=== PATIENT | male | born 1985 | race Two or more races ===

== ENCOUNTER → 2018-09-24 | Outpatient (CLI) | payer OTHER ==
--- NOTE | 2018-09-24 15:44 | RADIOLOGY IMAGING REPORT ---
FACILITY: [facility] PATIENT NAME: Roseann Hair : 1985 MR: [id number] V: [id number] EXAM DATE: ORDERING PHYSICIAN: BRAD PARK TECHNOLOGIST: Location: [facility] Patient: Roseann Hair : 1985 Visit/Account:[id number] Date of Sevice: 09/24/2018 TESTICULAR HISTORY: possible right varicocele, right-sided scrotal mass COMPARISON: None. FINDINGS: Testes: The right testicle measures 3.8 x 2.2 x 2.7 cm. The left testicle measures 4 x 1.7 x 2.6 cm. Symmetric and unremarkable blood flow documented by color and Duplex Doppler ultrasound. Epididymides: The head the epididymis on the right measures 9 mm. The head epididymis on the left me asures 9 mm. Blood flow is unremarkable in each epididymis by color Doppler ultrasound. Hydrocele: Small bilaterally Varicocele: The vessels of the pampiniform plexus on the right appear more prominent than on the left , particularly during the Valsalva maneuver. IMPRESSION: The vessels of the pampiniform plexus on the right appear more prominent than the left, particularly during Valsalva maneuver and is suspicious for varicocele Report Dictated By: Annabella Andrews MD at 09/24/2018 3:34 PM Report E-Signed By: Annabella Andrews MD at 09/24/2018 3:39 PM WSN:[id number]
== END ==
LOC: US 00:43
PROVIDERS: ATTEND Urology
DX: I86.1 Scrotal varices (principal)
CPT/HCPCS: 76870